=== PATIENT | female | born 1970 | race Caucasian/White ===

== ENCOUNTER 2020-12-12 13:57 | Emergency (ER) | payer MEDICAID ==
[2020-12-12 14:47] VITALS: BP 116/95; PULSE 70
[2020-12-12] MEDS ORDERED: Acetaminophen/HYDROcodone 325-5 MG Tab PO ONE (15:36)
--- NOTE | 2020-12-12 15:40 | EDM.PDOC ---
<Chauncey Goncalves Benji - Last Filed: 12/12/20 15:28> ED HPI GENERAL MEDICAL PROBLEM - General Chief Complaint: General Stated Complaint: HAD SURGERY NERVES C2-C5 SEVERE PAIN NECK TO HEAD Time Seen by Provider: 12/12/20 15:40 Source of Information: Reports: Patient History Limitations: Reports: No Limitations - History of Present Illness INITIAL COMMENTS - FREE TEXT/NARRATIVE: 5o y/o F c/o head nad neck pain /10 after a procedure at the [facility] yesterday. Pt states she had c2-c5 ablation on the left side at [facility] yesterday. Pt states yesterday after the procedure she developed severe bilateral head and neck pain. The pain is sharp and throbbing and constant. Pt reports she has tried taking her Tylenol and clonazepam without relief. Pt also states she has been feeling cold and then hot throughout the day today. Denies fever, cough, cp, sob, throat pain, abd pn, recent trauma, drugs, etoh. Onset: Other (last night) Duration: Hour(s): Quality: Reports: Sharp, Throbbing Severity: Severe Improves with: Reports: None Worsens with: Reports: Movement Associated Symptoms: Reports: No Other Symptoms Neck Pain Score (Numeric/FACES): 9 - Related Data Allergies Allergy/AdvReac Type Severity Reaction Status Date / Time ibuprofen Allergy Itching Verified 12/12/20 14:47 Home Meds: Home Meds Citalopram [Citalopram HBr] 20 mg PO DAILY 05/07/16 [History] Hydrochlorothiazide/Lisinopril [Lisinopril/HCTZ 10-12.5 MG] 1 tab PO DAILY 05/07/16 [History] Acetaminophen [Tylenol Extra Strength] 1,000 mg PO ASDIRECTED 12/12/20 [History] FLUoxetine HCl [Fluoxetine HCl] 40 mg PO DAILY 12/12/20 [History] Past Medical History - Past Health History Medical/Surgical History: Denies Medical/Surgical History Cardiovascular History: Reports: Hypertension Psychiatric History: Reports: Anxiety, Depression Social & Family History - Family History Family Medical History: No Pertinent Family History - Tobacco Use Second Hand Smoke Exposure: Yes - Caffeine Use Caffeine Use: Reports: Soda - Recreational Drug Use Recreational Drug Use: No - Living Situation & Occupation Living situation: Reports: with Family Occupation: Employed ED ROS GENERAL - Review of Systems Review Of Systems: See Below ED EXAM, GENERAL - Physical Exam Exam Limited By: No Limitations General Appearance: Alert, WD/WN, No Apparent Distress Ears: Normal External Exam, Normal Canal, Hearing Grossly Normal, Other (TMs blocked by excess cerumen) Ear Exam: Bilateral Ear: Auricle Normal, Canal Normal Nose: Normal Inspection, Normal Mucosa, No Blood Throat/Mouth: Normal Inspection, Normal Lips, Normal Teeth, Normal Gums, Normal Oropharynx, Normal Voice, No Airway Compromise Head: Atraumatic, Normocephalic Neck: Normal Inspection, Supple, Non-Tender, Other (decreased range of motion in all directions) Respiratory/Chest: No Respiratory Distress, Lungs Clear, Normal Breath Sounds, No Accessory Muscle Use, Chest Non-Tender Cardiovascular: Normal Peripheral Pulses, Regular Rate, Rhythm, No Edema, No Gallop, No JVD, No Murmur, No Rub GI/Abdominal: Normal Bowel Sounds, Soft, Non-Tender (Female) Exam: Deferred Rectal (Female) Exam: Deferred Back Exam: Normal Inspection, Full Range of Motion Extremities: Normal Inspection, Normal Range of Motion, Non-Tender, No Pedal Edema, Normal Capillary Refill Neurological: Alert, Oriented, CN II-XII Intact, Normal Cognition, No Motor/Sensory Deficits Psychiatric: Normal Affect, Normal Mood Skin Exam: Warm, Dry, Intact, Normal Color, No Rash Departure - Departure Disposition: Home, Self-Care 01 Clinical Impression: Hypokalemia Headache Qualifiers: Headache type: unspecified Headache chronicity pattern: unspecified pattern Intractability: not intractable Qualified Code(s): R51.9 - Headache, unspecified - Discharge Information Instructions: General Headache Without Cause, [place], Potassium Content of Foods, Hypokalemia Forms: ED Department Discharge Additional Instructions: May use Tylenol and Benadryl as directed for headache Follow-up with the provider who performed your nerve destruction Drink plenty of water Return to the ER with any worsening of symptoms Try to eat foods high in potassium Sepsis Event Note (ED) - Evaluation Sepsis Screening Result: No Definite Risk <Monalisa Arnold - Last Filed: 12/12/20 19:08> ED EXAM, GENERAL - Physical Exam Exam: See Below Course - Vital Signs Last Recorded V/S: Last Vital Signs Temp 97 F 12/12/20 14:43 Pulse 70 12/12/20 14:43 Resp 14 12/12/20 14:43 BP 116/95 H 12/12/20 14:43 Pulse Ox 100 12/12/20 14:43 - Orders/Labs/Meds Orders: Active Orders 24 hr Category Date Time Status Cervical Spine wo Cont [CT] Urgent Exams 12/12/20 15:38 Ordered Head wo Cont [CT] Urgent Exams 12/12/20 15:38 Ordered CULTURE BLOOD [BC] Stat Lab 12/12/20 15:44 Received CULTURE BLOOD [BC] Stat Lab 12/12/20 15:49 Received Blood Culture x2 Reflex Set [OM.PC] Stat Oth 12/12/20 15:29 Ordered Labs: Laboratory Tests 12/12/20 12/12/20 12/12/20 Range/Units 15:44 15:44 15:44 WBC 8.6 (5.0-10.0) 10^3/uL RBC 4.20 (4.2-5.4) 10^6/uL Hgb 13.3 (12.0-16.0) g/dL Hct 38.7 (37.0-47.0) % MCV 92.1 (80-100) fL MCH 31.7 (27.0-34.0) pg MCHC 34.4 (33.0-35.0) g/dL Plt Count 316 (150-450) 10^3/uL Neut % (Auto) 63.2 (42.2-75.2) % Lymph % (Auto) 31.5 (20.5-50.1) % [place] % (Auto) 4.8 (2-8) % Eos % (Auto) 0.4 L (1.0-3.0) % Baso % (Auto) 0.1 (0.0-1.0) % Sodium 137 (136-145) mmol/L Potassium 3.0 L (3.5-5.1) mmol/L Chloride 99 (98-107) mmol/L Carbon Dioxide 25 (21-32) mmol/L Anion Gap 16.0 H (7-13) mEq/L BUN 14 (7-18) mg/dL Creatinine 1.09 H (0.55-1.02) mg/dL Est Cr Clr Drug Dosing 53.32 mL/min Estimated GFR (MDRD) 53 BUN/Creatinine Ratio 12.8 (No establ ref range) Glucose 103 H (74-99) mg/dL Lactic Acid 2.3 H* (0.4-2.0) mmol/L Calcium 9.9 (8.5-10.1) mg/dL Total Bilirubin 0.9 (0.2-1.0) mg/dL AST 16 (15-37) U/L ALT 27 (14-59) U/L Alkaline Phosphatase 71 (46-116) U/L Total Protein 8.2 (6.4-8.2) g/dL Albumin 4.3 (3.4-5.0) g/dL Globulin 3.9 Albumin/Globulin Ratio 1.1 Meds: Medications Discontinued Medications Generic Name Dose Route Start Last Admin Trade Name Freq PRN Reason Stop Dose Admin Hydrocodone Bitart/Acetaminophen 1 tab 12/12/20 15:36 12/12/20 16:45 [place] 325-5 Mg PO 12/12/20 15:37 1 tab ONETIME ONE Administration Diphenhydramine HCl 50 mg 12/12/20 16:53 12/12/20 17:17 Benadryl IVPUSH 12/12/20 16:54 50 mg ONETIME ONE Administration Sodium Chloride 1,000 mls @ 999 mls/hr 12/12/20 16:53 12/12/20 17:25 Normal Saline IV 12/12/20 17:53 999 mls/hr .BOLUS ONE Administration Potassium Chloride 10 meq/ 100 mls @ 100 mls/hr 12/12/20 16:54 12/12/20 17:25 Premix IV 12/12/20 17:53 100 mls/hr ONETIME ONE Administration Metoclopramide HCl 10 mg 12/12/20 16:53 12/12/20 17:14 Reglan IVPUSH 12/12/20 16:54 10 mg ONETIME ONE Administration - Re-Assessments/Exams Free Text/Narrative Re-Assessment/Exam: 12/12/20 18:59 I personally performed or re-performed the physical examination and medical decision making. I have verified all student documentation or findings, including history, physical exam and/or medical decision making. Departure - Departure Time of Disposition: 19:03 Condition: Good - Discharge Information *PRESCRIPTION DRUG MONITORING PROGRAM REVIEWED*: No *COPY OF PRESCRIPTION DRUG MONITORING REPORT IN PATIENT CHIN: No Sepsis Event Note (ED) - Focused Exam Vital Signs: Vital Signs Temp Pulse Resp BP Pulse Ox 12/12/20 14:43 97 F 70 14 116/95 H 100
[2020-12-12] MEDS ORDERED: Metoclopramide 10 MG/2 ML SDV IVPUSH ONE (16:53)
[2020-12-12] MEDS ORDERED: Sodium Chloride 0.9% 1,000 ML IV ONE (16:53)
[2020-12-12] MEDS ORDERED: diphenhydrAMINE 50 MG/ML SDV IVPUSH ONE (16:53)
[2020-12-12] MEDS ORDERED: Potassium Chloride 10 MEQ in Premix Bag 1 BAG IV ONE (16:54)
== END 2020-12-12 19:11 | disposition home or self-care (01) ==
LOC: DL.ED 13:57
DX: R51.9 Headache, unspecified (principal); E87.6 Hypokalemia; M54.2 Cervicalgia; I10 Essential (primary) hypertension; Z88.6 Allergy status to analgesic agent; Z77.22 Contact with and (suspected) exposure to environmental tobacco smoke (acute) (chronic); Z79.899 Other long term (current) drug therapy
CPT/HCPCS: 36415; 80053; 83605; 85025; 87040; 96365; 96375; 99283; A9270; J1200; J2765; J3480; J7030

== ENCOUNTER 2021-04-24 10:09 | Emergency (ER) | payer OTHER, MEDICAID ==
[2021-04-24 10:46] VITALS: BP 120/81; PULSE 95
--- NOTE | 2021-04-24 14:31 | EDM.PDOC ---
ED HPI GENERAL MEDICAL PROBLEM - General Chief Complaint: General Stated Complaint: [id number] WORKERS COMP TURNED AND FELL Time Seen by Provider: 04/24/21 13:45 Source of Information: Reports: Patient History Limitations: Reports: No Limitations - History of Present Illness INITIAL COMMENTS - FREE TEXT/NARRATIVE: ED with c/o headache to rihgt side of forehead from bruise. 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 no loss of consciousness. No neck pain. No nausea or vomiting. Head Pain Score (Numeric/FACES): 10 - Related Data Allergies Allergy/AdvReac Type Severity Reaction Status Date / Time ibuprofen Allergy Itching Verified 12/12/20 14:47 Home Meds: Home Meds Hydrochlorothiazide/Lisinopril [Lisinopril/HCTZ 10-12.5 MG] 1 tab PO DAILY 05/07/16 [History] Acetaminophen [Tylenol Extra Strength] 1,000 mg PO ASDIRECTED 12/12/20 [History] FLUoxetine HCl [Fluoxetine HCl] 40 mg PO DAILY 12/12/20 [History] clonazePAM [Clonazepam] 1 mg PO BID 04/24/21 [History] Past Medical History - Past Health History Medical/Surgical History: Denies Medical/Surgical History Cardiovascular History: Reports: Hypertension Psychiatric History: Reports: Anxiety, Depression Social & Family History - Family History Family Medical History: No Pertinent Family History - Tobacco Use Tobacco Use Status *Q: Never Tobacco User - Caffeine Use Caffeine Use: Reports: Coffee - Recreational Drug Use Recreational Drug Use: No Drug Use in Last 12 Months: No - Living Situation & Occupation Living situation: Reports: with Family Occupation: Employed ED ROS GENERAL - Review of Systems Review Of Systems: Comprehensive ROS is negative, except as noted in HPI. ED EXAM, GENERAL - Physical Exam Exam: See Below Exam Limited By: No Limitations General Appearance: Alert, Mild Distress Eye Exam: Bilateral Eye: EOMI, PERRL Ears: Normal External Exam, Hearing Grossly Normal, Normal TMs Nose: Normal Inspection Throat/Mouth: Normal Inspection Head: Normocephalic Neck: Normal Inspection, Full Range of Motion Respiratory/Chest: No Respiratory Distress, Lungs Clear, Normal Breath Sounds Cardiovascular: Normal Peripheral Pulses, Regular Rate, Rhythm GI/Abdominal: Normal Bowel Sounds Back Exam: Full Range of Motion Extremities: Normal Inspection Neurological: Alert, Oriented Psychiatric: Normal Affect, Normal Mood Skin Exam: Warm, Dry, Ecchymosis (right forehead) Course - Vital Signs Last Recorded V/S: Last Vital Signs Temp 98.6 F 04/24/21 10:39 Pulse 95 04/24/21 10:39 Resp 18 04/24/21 10:39 BP 120/81 04/24/21 10:39 Pulse Ox Departure - Departure Time of Disposition: 14:28 Disposition: Home, Self-Care 01 Condition: Good Clinical Impression: Headache Qualifiers: Headache type: post-traumatic Headache chronicity pattern: acute headache Intractability: not intractable Qualified Code(s): G44.319 - Acute post- traumatic headache, not intractable Contusion of head Qualifiers: Encounter type: initial encounter Laterality: right - Discharge Information *PRESCRIPTION DRUG MONITORING PROGRAM REVIEWED*: No *COPY OF PRESCRIPTION DRUG MONITORING REPORT IN PATIENT CHIN: No Instructions: Facial or Scalp Contusion, [id number] Forms: ED Department Discharge Additional Instructions: tylenol 650mg every 4-6 hours as needed for headache cold pack to forehead today light activity today Sepsis Event Note (ED) - Evaluation Sepsis Screening Result: No Definite Risk
== END 2021-04-24 14:45 | disposition home or self-care (01) ==
LOC: DL.ED 10:09
DX: S00.83XA Contusion of other part of head, initial encounter (principal); G44.319 Acute post-traumatic headache, not intractable; I10 Essential (primary) hypertension; X50.1XXA Overexertion from prolonged static or awkward postures, initial encounter; Y99.0 Civilian activity done for income or pay
CPT/HCPCS: 99283

== ENCOUNTER 2021-10-29 18:31 | Emergency (ER) | payer OTHER, MEDICAID ==
[2021-10-29] MEDS ORDERED: Ondansetron 4 MG Tab.DIS PO ONE (18:32)
[2021-10-29] MEDS ORDERED: Sodium Chloride 0.9% 10 ML Syringe FLUSH PRN (19:32)
[2021-10-29] MEDS ORDERED: Sodium Chloride 0.9% 1,000 ML IV ONE (19:33)
[2021-10-29] MEDS ORDERED: Ondansetron 4 MG/2 ML SDV IVPUSH ONE (19:34)
[2021-10-29 19:49] LABS: CORONAVIRUS COVID-19 NAA NEGATIVE (NEGATIVE)
--- NOTE | 2021-10-29 19:58 | EDM.PDOC ---
ED HPI GENERAL MEDICAL PROBLEM - General Chief Complaint: Gastrointestinal Problem Stated Complaint: CANT KEEP FOOD IN-THROWING UP&DIARHEA,BREATHING Time Seen by Provider: 10/29/21 19:53 Source of Information: Reports: Patient History Limitations: Reports: No Limitations - History of Present Illness INITIAL COMMENTS - FREE TEXT/NARRATIVE: 1 y/o F c/o cp [facility] 03/06, non radiating for 2 weeks. Pt believes it may be her anxiety as she is stressed about her work load at work. Pt also reports NVD, abd soreness for 2 weeks and hasnt been able to joel anything down. No blood in vomit or stool. Hx of anxiety. Has been worked u extensively for cardiac prob in 2016 with no findings. Denies fever, chills, body aches, db, back pn, extr pain, drugs, etoh, trauma. Is fully vaccinated with booster with [employer]. Anterior Chest Pain Score (Numeric/FACES): 3 - Related Data Allergies Allergy/AdvReac Type Severity Reaction Status Date / Time ibuprofen Allergy Itching Verified 12/12/20 14:47 tramadol Allergy Itching Verified 10/29/21 19:14 Home Meds: Home Meds Hydrochlorothiazide/Lisinopril [Lisinopril/HCTZ 10-12.5 MG] 1 tab PO DAILY 05/07/16 [History] Acetaminophen [Tylenol Extra Strength] 1,000 mg PO ASDIRECTED 12/12/20 [History] FLUoxetine HCl [Fluoxetine HCl] 40 mg PO DAILY 12/12/20 [History] clonazePAM [Clonazepam] 1 mg PO BID 04/24/21 [History] Past Medical History - Past Health History Medical/Surgical History: Denies Medical/Surgical History Cardiovascular History: Reports: Hypertension Musculoskeletal History: Reports: Back Pain, Chronic Neurological History: Reports: Seizure Psychiatric History: Reports: Anxiety, Depression, Panic Attack Social & Family History - Family History Family Medical History: No Pertinent Family History - Tobacco Use Tobacco Use Status *Q: Never Tobacco User - Caffeine Use Caffeine Use: Reports: Soda, Tea - Recreational Drug Use Recreational Drug Use: No - Living Situation & Occupation Living situation: Reports: with Family Occupation: Employed ED ROS GENERAL - Review of Systems Review Of Systems: Comprehensive ROS is negative, except as noted in HPI. ED EXAM, GI/ABD - Physical Exam Exam: See Below Exam Limited By: No Limitations General Appearance: Alert, No Apparent Distress Ears: Normal External Exam, Normal Canal, Hearing Grossly Normal, Normal TMs Nose: Normal Inspection, Normal Mucosa, No Blood Throat/Mouth: Other (dry oropharynx, tongue dry and furrowed.) Head: Atraumatic, Normocephalic Neck: Supple, Non-Tender Respiratory/Chest: No Respiratory Distress, Lungs Clear, Normal Breath Sounds, No Accessory Muscle Use, Chest Non-Tender Cardiovascular: Normal Peripheral Pulses, Regular Rate, Rhythm, No Edema, No Gallop, No JVD, No Murmur, No Rub GI/Abdominal Exam: Soft, Other (slight soreness over the epigastrium) (Female) Exam: Deferred Rectal (Female) Exam: Deferred Back Exam: Normal Inspection, Full Range of Motion, NT Extremities: Normal Inspection, Normal Range of Motion, Non-Tender, Normal C apillary Refill, No Pedal Edema Neurological: Alert, Oriented, CN II-XII Intact, Normal Cognition, Normal Gait, Normal Reflexes, No Motor/Sensory Deficits Psychiatric: Normal Affect, Normal Mood Skin Exam: Warm, Dry, Intact, Normal Color, No Rash #1 Interpretation EKG Date: 10/29/21 Time: 19:39 Rhythm: Other (sinus rhythm) [place]: Normal P-Wave: Present QRS: Normal ST-T: Other (biphasic T waves v2-v4. 1mm of st depression v2-v4 unknown new or old no previous tracings.) QT: Normal EKG Interpretation Comments: sinus rhythm, rate 85, normal axis, normal R wave progression, bipahsic T waves in V2-v4 with st depression concerning for ischemia or possible posterior CA. No prior tracings available. #2 Interpretation EKG Date: 10/29/21 Time: 19:48 Rhythm: Other (SINUS posterior EKG) [place]: Normal P-Wave: Present QRS: Normal ST-T: Other (biphasic T waves V2-V4 with St depression V2-V4. Posterior leads normal) QT: Normal EKG Interpretation Comments: Posterior EKG: Sinus rhythm, rate 90, normal axis, no ectopy, ST depression and biphasic T waves V2-V4, Normal posterior leads. Course - Vital Signs Last Recorded V/S: Last Vital Signs Temp 99.4 F 10/29/21 19:19 Pulse 106 H 10/29/21 19:19 Resp 24 H 10/29/21 19:19 BP 99/72 10/29/21 19:19 Pulse Ox 99 10/29/21 19:19 - Orders/Labs/Meds Orders: Active Orders 24 hr Category Date Time Status Peripheral IV Care [RC] . DIRECTED Care 10/29/21 19:33 Active Lactated Ringers [Ringers, Lactated] 1,000 ml Med 10/29/21 20:39 Active IV .BOLUS Sodium Chloride 0.9% [Saline Flush] Med 10/29/21 19:32 Active 10 ml FLUSH ASDIRECTED PRN Peripheral IV Insertion Adult [OM.PC] Routine Oth 10/29/21 19:32 Ordered Medication Orders Lactated Ringer's (Ringers, Lactated) 1,000 mls @ 999 mls/hr IV .BOLUS ONE Stop: 10/29/21 21:39 Last Admin: 10/29/21 20:47 Dose: 999 mls/hr Documented by: EBER Sodium Chloride (Sodium Chloride 0.9% 10 Ml Syringe) 10 ml FLUSH ASDIRECTED PRN PRN Reason: Keep Vein Open Last Admin: 10/29/21 20:08 Dose: 10 ml Documented by: EBER Labs: Laboratory Tests 10/29/21 10/29/21 10/29/21 Range/Units 07:00 19:45 19:45 WBC 3.9 L (5.0-10.0) 10^3/uL RBC 4.05 L (4.2-5.4) 10^6/uL Hgb 12.8 (12.0-16.0) g/dL Hct 37.4 (37.0-47.0) % MCV 92.3 (80-100) fL MCH 31.6 (27.0-34.0) pg MCHC 34.2 (33.0-35.0) g/dL Plt Count 254 (150-450) 10^3/uL Neut % (Auto) 59.0 (42.2-75.2) % Lymph % (Auto) 24.9 (20.5-50.1) % [place] % (Auto) 15.3 H (2-8) % Eos % (Auto) 0.5 L (1.0-3.0) % Baso % (Auto) 0.3 (0.0-1.0) % Sodium 131 L (136-145) mmol/L Potassium 2.8 L (3.5-5.1) mmol/L Chloride 96 L (98-107) mmol/L Carbon Dioxide 24 (21-32) mmol/L Anion Gap 13.8 H (7-13) mEq/L BUN 20 H (7-18) mg/dL Creatinine 1.10 H (0.55-1.02) mg/dL Est Cr Clr Drug Dosing 50.05 mL/min Estimated GFR (MDRD) 52 BUN/Creatinine Ratio 18.2 (No establ ref range) Glucose 100 H (70-99) mg/dL Lactic Acid (0.4-2.0) mmol/L Calcium 9.2 (8.5-10.1) mg/dL Magnesium 1.9 (1.8-2.4) mg/dL Total Bilirubin 0.8 (0.2-1.0) mg/dL AST 17 (15-37) U/L ALT 20 (14-59) U/L Alkaline Phosphatase 69 (46-116) U/L Troponin I High Sens 7 (<=51) pg/mL C-Reactive Protein 1.3 H (0.0-0.9) mg/dL Total Protein 7.8 (6.4-8.2) g/dL Albumin 4.0 (3.4-5.0) g/dL Globulin 3.8 Albumin/Globulin Ratio 1.1 Amylase 48 (25-115) U/L Lipase 94 (73-393) U/L TSH, Ultra Sensitive 2.74 (0.36-3.74) uIU/mL Influenza Type A RNA Negative (NEGATIVE) Influenza Type B RNA Negative (NEGATIVE) SARS-CoV-2 RNA (KULDIP) Negative (NEGATIVE) 10/29/21 Range/Units 19:45 WBC (5.0-10.0) 10^3/uL RBC (4.2-5.4) 10^6/uL Hgb (12.0-16.0) g/dL Hct (37.0-47.0) % MCV (80-100) fL MCH (27.0-34.0) pg MCHC (33.0-35.0) g/dL Plt Count (150-450) 10^3/uL Neut % (Auto) (42.2-75.2) % Lymph % (Auto) (20.5-50.1) % [place] % (Auto) (2-8) % Eos % (Auto) (1.0-3.0) % Baso % (Auto) (0.0-1.0) % Sodium (136-145) mmol/L Potassium (3.5-5.1) mmol/L Chloride (98-107) mmol/L Carbon Dioxide (21-32) mmol/L Anion Gap (7-13) mEq/L BUN (7-18) mg/dL Creatinine (0.55-1.02) mg/dL Est Cr Clr Drug Dosing mL/min Estimated GFR (MDRD) BUN/Creatinine Ratio (No establ ref range) Glucose (70-99) mg/dL Lactic Acid 1.0 (0.4-2.0) mmol/L Calcium (8.5-10.1) mg/dL Magnesium (1.8-2.4) mg/dL Total Bilirubin (0.2-1.0) mg/dL AST (15-37) U/L ALT (14-59) U/L Alkaline Phosphatase (46-116) U/L Troponin I High Sens (<=51) pg/mL C-Reactive Protein (0.0-0.9) mg/dL Total Protein (6.4-8.2) g/dL Albumin (3.4-5.0) g/dL Globulin Albumin/Globulin Ratio Amylase (25-115) U/L Lipase (73-393) U/L TSH, Ultra Sensitive (0.36-3.74) uIU/mL Influenza Type A RNA (NEGATIVE) Influenza Type B RNA (NEGATIVE) SARS-CoV-2 RNA (KULDIP) (NEGATIVE) Meds: Medications Generic Name Dose Route Start Last Admin Trade Name Freq PRN Reason Stop Dose Admin Lactated Ringer's 1,000 mls @ 999 mls/hr 10/29/21 20:39 10/29/21 20:47 Ringers, Lactated IV 10/29/21 21:39 999 mls/hr .BOLUS ONE Administration Sodium Chloride 10 ml 10/29/21 19:32 10/29/21 20:08 Sodium Chloride 0.9% 10 Ml Syringe FLUSH 10 ml ASDIRECTED PRN Administration Keep Vein Open Discontinued Medications Generic Name Dose Route Start Last Admin Trade Name Freq PRN Reason Stop Dose Admin Sodium Chloride 1,000 mls @ 999 mls/hr 10/29/21 19:33 10/29/21 20:04 Normal Saline IV 10/29/21 20:33 999 mls/hr .BOLUS ONE Administration Ondansetron HCl 4 mg 10/29/21 19:34 10/29/21 20:05 Ondansetron 4 Mg/2 Ml Sdv IVPUSH 10/29/21 19:35 4 mg ONETIME ONE Administration Potassium Chloride 40 meq 10/29/21 20:34 10/29/21 20:47 Potassium Chloride 10 Meq Tab.Er PO 10/29/21 20:35 40 meq ONETIME ONE Administration - Re-Assessments/Exams Free Text/Narrative Re-Assessment/Exam: 10/29/21 21:03 The pt feels much better after fluid resuscitation and potassium replacement. I discussed her labs and exam and ekg with her and explained that she like has a viral infection along with her anxiety that are causing her symptoms. She is alert cheerful and eating at this time and feels safe to go home. I will send her home with an RX for zofran and have her follow u in clinic next week if her symptoms do not improve. Departure - Departure Time of Disposition: 21:01 Disposition: Home, Self-Care 01 Condition: Good Clinical Impression: Anxiety, Nausea vomiting and diarrhea - Discharge Information *PRESCRIPTION DRUG MONITORING PROGRAM REVIEWED*: Not Applicable *COPY OF PRESCRIPTION DRUG MONITORING REPORT IN PATIENT CHIN: Not Applicable Forms: ED Department Discharge Additional Instructions: RX: Zofran Drink plenty of fluids to maintain hydration. Follow up in clinic if your symptoms do not improve by the middle of next week. If any new symptoms or concerns develop contact your primary care facility or return to the ER. Sepsis Event Note (ED) - Focused Exam Vital Signs: Vital Signs Temp Pulse Resp BP Pulse Ox 10/29/21 19:19 99.4 F 106 H 24 H 99/72 99 - My Orders Last 24 Hours: My Active Orders 10/29/21 19:32 Sodium Chloride 0.9% [Saline Flush] 10 ml FLUSH ASDIRECTED PRN Peripheral IV Insertion Adult [OM.PC] Routine 10/29/21 19:33 Peripheral IV Care [RC] . DIRECTED 10/29/21 20:39 Lactated Ringers [Ringers, Lactated] 1,000 ml IV .BOLUS - Assessment/Plan Last 24 Hours: My Active Orders 10/29/21 19:32 Sodium Chloride 0.9% [Saline Flush] 10 ml FLUSH ASDIRECTED PRN Peripheral IV Insertion Adult [OM.PC] Routine 10/29/21 19:33 Peripheral IV Care [RC] . DIRECTED 10/29/21 20:39 Lactated Ringers [Ringers, Lactated] 1,000 ml IV .BOLUS
[2021-10-29 20:24] LABS: ANION GAP 13.8 mEq/L (7-13)
[2021-10-29] MEDS ORDERED: Potassium Chloride 10 MEQ Tab.ER PO ONE (20:34)
[2021-10-29] MEDS ORDERED: Lactated Ringers 1,000 ML IV ONE (20:39)
[2021-10-29 21:11] VITALS: BP 117/81; PULSE 82
[2021-10-29] MEDS ORDERED: Ondansetron 4 MG Tab.DIS ONE ×2 (21:25→21:26)
== END 2021-10-29 21:35 | disposition home or self-care (01) ==
LOC: DL.ED 18:31
DX: R11.2 Nausea with vomiting, unspecified (principal); R19.7 Diarrhea, unspecified; F41.9 Anxiety disorder, unspecified; I10 Essential (primary) hypertension; Z88.6 Allergy status to analgesic agent; Z88.5 Allergy status to narcotic agent; Z79.899 Other long term (current) drug therapy; Z20.822 Contact with and (suspected) exposure to COVID-19
CPT/HCPCS: 0240U; 36415; 80053; 82150; 83605; 83690; 83735; 84443; 84484; 85025; 86140; 93005; 96374; 99285; A9270; J2405; J7030; J7120

== ENCOUNTER 2022-04-21 05:39 | Day surgery (SDC) | payer MEDICAID, OTHER ==
[~2022-04-21 05:39] MED LIST: Sodium Chloride 0.9% 10 ML Syringe FLUSH PRN; Sodium Chloride 0.9% 10 ML Syringe FLUSH SCH
[2022-04-21] MEDS ORDERED: fentaNYL 100 MCG/2 ML SDV IV ONE (05:40)
[2022-04-21] MEDS ORDERED: Midazolam 1 MG/ML 2 ML SDV IV ONE (05:40)
[2022-04-21] MEDS ORDERED: fentaNYL 100 MCG/2 ML SDV ONE (06:14)
[2022-04-21] MEDS ORDERED: Midazolam 1 MG/ML 2 ML SDV ONE (06:14)
[2022-04-21] MEDS: Dextrose 5%-0.45% NaCl 1,000 ML IV SCH (06:23)
[2022-04-21] MEDS: fentaNYL 100 MCG/2 ML SDV IV ONE ×6 (07:59→08:11)
[2022-04-21] MEDS: Midazolam 1 MG/ML 2 ML SDV IV ONE ×6 (08:01→08:08)
[2022-04-21 10:38] VITALS: BP 122/72; PULSE 70
== END 2022-04-21 10:32 | disposition home or self-care (01) ==
LOC: DL.ENDO 05:39
PROVIDERS: ATTEND Internal Medicine Gastroenterology
DX: Z12.11 Encounter for screening for malignant neoplasm of colon (principal); E66.09 Other obesity due to excess calories; F41.1 Generalized anxiety disorder; F32.A Depression, unspecified; I10 Essential (primary) hypertension; M47.812 Spondylosis without myelopathy or radiculopathy, cervical region; Z68.30 Body mass index [BMI] 30.0-30.9, adult; Z88.8 Allergy status to other drugs, medicaments and biological substances; Z01.812 Encounter for preprocedural laboratory examination; Z20.822 Contact with and (suspected) exposure to COVID-19; Z98.890 Other specified postprocedural states
CPT/HCPCS: J2250; J3010; J7042; U0002

== ENCOUNTER 2022-10-01 20:24 | Emergency (ER) | payer MEDICAID ==
[2022-10-01] MEDS ORDERED: Cyclobenzaprine 10 MG Tab PO ONE (20:25)
[2022-10-01] MEDS ORDERED: Acetaminophen 325 MG Tab PO ONE (21:18)
[2022-10-01] MEDS ORDERED: Iopamidol 612 MG/ML 100 ML Bottle IVPUSH ONE (22:51)
[2022-10-01 23:22] LABS: ANION GAP 12.9 mEq/L (7-13)
[2022-10-02] MEDS ORDERED: Cyclobenzaprine 10 MG Tab ONE (01:22)
== END 2022-10-02 01:29 | disposition home or self-care (01) ==
LOC: MERGE 20:24 → DL.ED 20:24
DX: S20.211A Contusion of right front wall of thorax, initial encounter (principal); S20.212A Contusion of left front wall of thorax, initial encounter; I10 Essential (primary) hypertension; Z88.6 Allergy status to analgesic agent; Z88.5 Allergy status to narcotic agent; Z79.899 Other long term (current) drug therapy; W22.8XXA Striking against or struck by other objects, initial encounter; Y92.69 Other specified industrial and construction area as the place of occurrence of the external cause
CPT/HCPCS: 36415; 71046; 71260; 80053; 85025; 93005; 99284; A9270; Q9967

== ENCOUNTER 2023-02-28 18:42 | Emergency (ER) | payer MEDICAID ==
[2023-02-28] MEDS ORDERED: predniSONE 20 MG Tab PO ONE (18:43)
[2023-02-28] MEDS: Sodium Chloride 0.9% 10 ML Syringe FLUSH SCH (19:31)
[2023-02-28 19:43] LABS: ANION GAP 18.4 mEq/L (7-13); CHLORIDE,CL 106 mmol/L (98-107); SODIUM,NA 143 mmol/L (136-145)
[2023-02-28 19:49] LABS: ESTIMATED GFR 67 mL/min (>=60)
[2023-02-28] MEDS: predniSONE 20 MG Tab PO ONE (20:32)
[2023-02-28] MEDS: predniSONE 20 MG Tab ONE (20:33)
== END 2023-02-28 20:43 | disposition home or self-care (01) ==
LOC: DL.ED 18:42
DX: G51.0 Bell's palsy (principal); I10 Essential (primary) hypertension; J45.909 Unspecified asthma, uncomplicated; Z88.8 Allergy status to other drugs, medicaments and biological substances; Z79.51 Long term (current) use of inhaled steroids
CPT/HCPCS: 36415; 70450; 80053; 82947; 83605; 84484; 85025; 85651; 86140; 93005; 93010; 99284; 99285; J3490; J7512

== ENCOUNTER 2023-03-30 08:44 | Emergency (ER) | payer MEDICAID | END 2023-03-30 09:50 | disposition home or self-care (01) | LOC: DL.ED 08:44 | DX: G43.909 Migraine, unspecified, not intractable, without status migrainosus (principal); I10 Essential (primary) hypertension; J45.909 Unspecified asthma, uncomplicated; Z88.6 Allergy status to analgesic agent; Z88.5 Allergy status to narcotic agent | CPT/HCPCS: 82947; 99283; 99284 ==

== ENCOUNTER 2023-06-07 07:56 | Emergency (ER) | payer MEDICAID ==
[2023-06-07] MEDS ORDERED: Sodium Chloride 0.9% 10 ML Syringe FLUSH PRN (08:19)
[2023-06-07 08:52] LABS: BASOPHILS PERCENT AUTO 0.2 % (0.0-1.0); EOSINOPHILS PERCENT AUTO 1.1 % (1.0-3.0); HEMATOCRIT 40.1 % (37.0-47.0); HEMOGLOBIN 13.5 g/dL (12.0-16.0); LYMPHOCYTES PERCENT AUTO 23.1 % (20.5-50.1); MEAN CORPUSCULAR HEMOGLOBIN 30.6 pg (27.0-34.0); MEAN CORPUSCULAR HGB CONC 33.7 g/dL (33.0-35.0); MEAN CORPUSCULAR VOLUME 90.9 fL (80-100); MONOCYTES PERCENT AUTO 5.4 % (2-8); NEUTROPHILS PERCENT AUTO 70.2 % (42.2-75.2); PLATELET COUNT,PLT 247 10^3/uL (150-450); RED BLOOD CELL COUNT 4.41 10^6/uL (4.2-5.4); WHITE BLOOD CELL COUNT,WBC 4.7 10^3/uL (5.0-10.0)
[2023-06-07] MEDS ORDERED: Metoclopramide 10 MG/2 ML SDV IVPUSH ONE (09:04)
[2023-06-07] MEDS ORDERED: diphenhydrAMINE 50 MG/ML SDV IVPUSH ONE (09:04)
[2023-06-07] MEDS ORDERED: methylPREDNISolone Sodium Succinate 125 MG/2 ML SDV IVPUSH ONE (09:04)
[2023-06-07] MEDS ORDERED: Sodium Chloride 0.9% 1,000 ML IV ONE (09:04)
[2023-06-07 09:11] LABS: PROTHROMBIN TIME 10.3 SEC (9.0-12.0); PTT,PARTIAL THROMBOPLSTIN TIME 25.6 SEC (22.0-34.0)
[2023-06-07 09:29] LABS: A/G RATIO 1.1; ALANINE AMINOTRANSFERASE,ALT 19 U/L (14-59); ALBUMIN 3.9 g/dL (3.4-5.0); ALKALINE PHOSPHATASE 80 U/L (46-116); ANION GAP 15.9 mEq/L (7-13); ASPARTATE AMNIOTRANSFERASE,AST 14 U/L (15-37); BLOOD UREA NITROGEN,BUN 20 mg/dL (7-18); BUN/CREATININE RATIO 23.3 (No establ ref range); CARBON DIOXIDE,CO2 20 mmol/L (21-32); CHLORIDE,CL 108 mmol/L (98-107); CREATININE 0.86 mg/dL (0.55-1.02); EST CRCL DRUG DOSING (CG) 60.52 mL/min; GLUCOSE RANDOM 104 mg/dL (70-99); POTASSIUM,K 3.9 mmol/L (3.5-5.1); PROTEIN TOTAL,TP 7.3 g/dL (6.4-8.2); SODIUM,NA 140 mmol/L (136-145)
[2023-06-07 09:36] LABS: C-REACTIVE PROTEIN < 0.2 mg/dL (0.0-0.9); ESTIMATED GFR 81 mL/min (>=60); LACTIC ACID 1.2 mmol/L (0.4-2.0)
== END 2023-06-07 10:27 | disposition home or self-care (01) ==
LOC: DL.ED 07:56
DX: G43.409 Hemiplegic migraine, not intractable, without status migrainosus (principal); I10 Essential (primary) hypertension; J45.909 Unspecified asthma, uncomplicated; Z88.5 Allergy status to narcotic agent; Z88.8 Allergy status to other drugs, medicaments and biological substances
CPT/HCPCS: 36415; 70450; 80053; 82947; 83605; 84145; 84484; 85025; 85610; 85730; 86140; 93005; 93010; 96374; 96375; 99284; J1200; J2765; J2930; J7030; J3490

== ENCOUNTER 2023-06-28 07:45 | Emergency (ER) | payer MEDICAID ==
[2023-06-28] MEDS ORDERED: Ondansetron 4 MG/2 ML SDV IV ONE (07:58)
[2023-06-28] MEDS ORDERED: Sodium Chloride 0.9% 1,000 ML IV ONE (07:58)
[2023-06-28] MEDS ORDERED: Sodium Chloride 0.9% 10 ML Syringe FLUSH PRN (07:59)
[2023-06-28 08:15] LABS: BASOPHILS PERCENT AUTO 0.1 % (0.0-1.0); EOSINOPHILS PERCENT AUTO 0.5 % (1.0-3.0); HEMATOCRIT 40.1 % (37.0-47.0); HEMOGLOBIN 13.8 g/dL (12.0-16.0); LYMPHOCYTES PERCENT AUTO 15.8 % (20.5-50.1); MEAN CORPUSCULAR HEMOGLOBIN 30.9 pg (27.0-34.0); MEAN CORPUSCULAR HGB CONC 34.4 g/dL (33.0-35.0); MEAN CORPUSCULAR VOLUME 89.7 fL (80-100); MONOCYTES PERCENT AUTO 6.8 % (2-8); NEUTROPHILS PERCENT AUTO 76.8 % (42.2-75.2); PLATELET COUNT,PLT 239 10^3/uL (150-450); RED BLOOD CELL COUNT 4.47 10^6/uL (4.2-5.4)
[2023-06-28 08:33] LABS: LACTIC ACID 1.9 mmol/L (0.4-2.0)
[2023-06-28 08:42] LABS: A/G RATIO 0.9; ALANINE AMINOTRANSFERASE,ALT 14 U/L (14-59); ALBUMIN 3.8 g/dL (3.4-5.0); ALKALINE PHOSPHATASE 80 U/L (46-116); ANION GAP 19.2 mEq/L (7-13); ASPARTATE AMNIOTRANSFERASE,AST 11 U/L (15-37); BLOOD UREA NITROGEN,BUN 10 mg/dL (7-18); BUN/CREATININE RATIO 12.2 (No establ ref range); CALCIUM 9.4 mg/dL (8.5-10.1); CARBON DIOXIDE,CO2 20 mmol/L (21-32); CHLORIDE,CL 106 mmol/L (98-107); CREATININE 0.82 mg/dL (0.55-1.02); EST CRCL DRUG DOSING (CG) 63.47 mL/min; GLUCOSE RANDOM 101 mg/dL (70-99); LIPASE 90 U/L (73-393); MAGNESIUM 1.8 mg/dL (1.8-2.4); POTASSIUM,K 3.2 mmol/L (3.5-5.1); PROTEIN TOTAL,TP 7.8 g/dL (6.4-8.2); SODIUM,NA 142 mmol/L (136-145)
[2023-06-28 08:45] LABS: ESTIMATED GFR 86 mL/min (>=60)
[2023-06-28 09:12] LABS: APPEARANCE,URINE CLEAR (CLEAR); BILIRUBIN,URINE NEGATIVE (NEGATIVE); COLOR,URINE YELLOW (YELLOW); GLUCOSE,URINE NEGATIVE (NEGATIVE); KETONES,URINE NEGATIVE (NEGATIVE); LEUKOCYTE ESTERASE,URINE TRACE (NEGATIVE); NITRITE,URINE NEGATIVE (NEGATIVE); OCCULT BLOOD,URINE NEGATIVE (NEGATIVE); PH,URINE 7.5 (5.0-9.0); PROTEIN,URINE NEGATIVE (NEGATIVE); UROBILINOGEN,URINE 0.2 mg/dL (0.2-1.0)
[2023-06-28 09:24] LABS: BACTERIA,URINE RARE /HPF (0-FEW/HPF); EPITHELIAL CELLS,URINE RARE /HPF (NOT SEEN); RBC,URINE 0-5 /HPF (0-5); WBC,URINE 0-5 /HPF (0-5/HPF)
== END 2023-06-28 10:01 | disposition home or self-care (01) ==
LOC: DL.ED 07:45
DX: R11.2 Nausea with vomiting, unspecified (principal); I10 Essential (primary) hypertension; J45.909 Unspecified asthma, uncomplicated; Z79.899 Other long term (current) drug therapy; Z88.5 Allergy status to narcotic agent; Z88.8 Allergy status to other drugs, medicaments and biological substances
CPT/HCPCS: 36415; 80053; 81001; 83605; 83690; 83735; 84145; 85025; 87086; 96361; 96374; 99284; J2405; J7030; 99283; J3490

== ENCOUNTER 2023-07-09 18:14 | Emergency (ER) | payer MEDICAID ==
[2023-07-09] MEDS ORDERED: Tetracaine HCl/PF 0.5% 4 ML Bottle ONE (18:39)
[2023-07-09] MEDS ORDERED: Amoxicillin 500 MG Cap PO ONE (18:40)
== END 2023-07-09 18:55 | disposition home or self-care (01) ==
LOC: DL.ED 18:14
DX: H66.93 Otitis media, unspecified, bilateral (principal); J01.00 Acute maxillary sinusitis, unspecified; J45.909 Unspecified asthma, uncomplicated; I10 Essential (primary) hypertension; Z79.899 Other long term (current) drug therapy; Z88.5 Allergy status to narcotic agent; Z88.8 Allergy status to other drugs, medicaments and biological substances
CPT/HCPCS: 99282; 99283; A9270-GY; J3490

== ENCOUNTER 2023-07-20 10:58 | Emergency (ER) | payer MEDICAID ==
[2023-07-20] MEDS ORDERED: Acetaminophen/HYDROcodone 325-10 MG Tab PO ONE (11:12)
[2023-07-20] MEDS ORDERED: Dexamethasone 4 MG/ML SDV IVPUSH ONE (11:13)
[2023-07-20] MEDS ORDERED: Sodium Chloride 0.9% 10 ML Syringe FLUSH PRN (11:13)
[2023-07-20 11:30] LABS: BASOPHILS PERCENT AUTO 0.2 % (0.0-1.0); EOSINOPHILS PERCENT AUTO 0.7 % (1.0-3.0); HEMATOCRIT 38.5 % (37.0-47.0); LYMPHOCYTES PERCENT AUTO 29.4 % (20.5-50.1); MEAN CORPUSCULAR HEMOGLOBIN 31.1 pg (27.0-34.0); MEAN CORPUSCULAR HGB CONC 33.8 g/dL (33.0-35.0); MEAN CORPUSCULAR VOLUME 92.1 fL (80-100); MONOCYTES PERCENT AUTO 5.9 % (2-8); NEUTROPHILS PERCENT AUTO 63.8 % (42.2-75.2); PLATELET COUNT,PLT 317 10^3/uL (150-450); RED BLOOD CELL COUNT 4.18 10^6/uL (4.2-5.4); WHITE BLOOD CELL COUNT,WBC 4.6 10^3/uL (5.0-10.0)
[2023-07-20 11:56] LABS: ALBUMIN 3.6 g/dL (3.4-5.0); ANION GAP 18.2 mEq/L (7-13); BILIRUBIN TOTAL 0.9 mg/dL (0.2-1.0); BUN/CREATININE RATIO 14.6 (No establ ref range); CALCIUM 9.1 mg/dL (8.5-10.1); CREATININE 0.82 mg/dL (0.55-1.02); EST CRCL DRUG DOSING (CG) 63.47 mL/min; POTASSIUM,K 4.2 mmol/L (3.5-5.1); PROTEIN TOTAL,TP 7.3 g/dL (6.4-8.2)
[2023-07-20] MEDS ORDERED: Iopamidol 755 Mg/ML 100 ML Bottle IV ONE (11:56)
[2023-07-20 12:39] LABS: APPEARANCE,URINE CLEAR (CLEAR); BILIRUBIN,URINE NEGATIVE (NEGATIVE); COLOR,URINE YELLOW (YELLOW); GLUCOSE,URINE NEGATIVE (NEGATIVE); KETONES,URINE NEGATIVE (NEGATIVE); LEUKOCYTE ESTERASE,URINE TRACE (NEGATIVE); NITRITE,URINE NEGATIVE (NEGATIVE); OCCULT BLOOD,URINE NEGATIVE (NEGATIVE); PH,URINE 8.5 (5.0-9.0); PROTEIN,URINE NEGATIVE (NEGATIVE); UROBILINOGEN,URINE 0.2 mg/dL (0.2-1.0)
[2023-07-20 12:56] LABS: AMORPHOUS SEDIMENT,URINE FEW /HPF (NOT SEEN); BACTERIA,URINE FEW /HPF (0-FEW/HPF); EPITHELIAL CELLS,URINE MODERATE /HPF (NOT SEEN); MUCUS,URINE RARE /LPF (NOT SEEN); RBC,URINE 0-5 /HPF (0-5); WBC,URINE 0-5 /HPF (0-5/HPF)
== END 2023-07-20 14:40 | disposition home or self-care (01) ==
LOC: DL.ED 10:58
DX: G43.909 Migraine, unspecified, not intractable, without status migrainosus (principal); H65.91 Unspecified nonsuppurative otitis media, right ear; G51.0 Bell's palsy; H92.01 Otalgia, right ear; J45.909 Unspecified asthma, uncomplicated; I10 Essential (primary) hypertension; Z79.899 Other long term (current) drug therapy; Z88.5 Allergy status to narcotic agent; Z88.8 Allergy status to other drugs, medicaments and biological substances
CPT/HCPCS: 36415; 70496; 80053; 81001; 85025; 87086; 96374; 99284; 99284-25; A9270-GY; J1100; J3490; Q9967

== ENCOUNTER 2023-10-24 07:08 | Emergency (ER) | payer MEDICAID ==
[2023-10-24] MEDS: Ketorolac 30 MG/ML SDV IM ONE (07:40)
== END 2023-10-24 07:45 | disposition home or self-care (01) ==
LOC: DL.ED 07:08
DX: J06.9 Acute upper respiratory infection, unspecified (principal); I10 Essential (primary) hypertension; Z88.5 Allergy status to narcotic agent; Z88.6 Allergy status to analgesic agent; Z79.899 Other long term (current) drug therapy
CPT/HCPCS: 96372; 99283; 99284; J1885

== ENCOUNTER 2024-01-15 11:25 | Emergency (ER) | payer MEDICAID ==
[2024-01-15] MEDS: Ketorolac 30 MG/ML SDV IM ONE (12:02)
== END 2024-01-15 12:05 | disposition home or self-care (01) ==
LOC: DL.ED 11:25
DX: J06.9 Acute upper respiratory infection, unspecified (principal); I10 Essential (primary) hypertension; J45.909 Unspecified asthma, uncomplicated; K21.9 Gastro-esophageal reflux disease without esophagitis; Z79.51 Long term (current) use of inhaled steroids; Z88.5 Allergy status to narcotic agent; Z88.6 Allergy status to analgesic agent; Z79.899 Other long term (current) drug therapy
CPT/HCPCS: 96372; 99283; 99284; J1885